=== PATIENT | male | born 1955 | race Caucasian/White ===

== ENCOUNTER 2024-06-04 12:24 | Emergency (ER) | payer MEDICARE ==
[~2024-06-04] VITALS: Ht 162.6 cm; Wt 81.0 kg
[2024-06-04 12:55] LABS: BASOPHILS % (AUTO) 0.2 % (0.0-2.0); EOSINOPHILS % (AUTO) 1.2 % (1.0-6.0); HEMATOCRIT 35.8 % (41-53); HEMOGLOBIN 12.2 g/dL (13.5-17.5); LYMPHOCYTES # (AUTO) 1.6 K/uL (1.0-4.8); MEAN CORPUSCULAR HGB CONC 34.1 G/dL (31.0-37.0); MEAN CORPUSCULAR VOLUME 94 fL (80-100); MONOCYTES # (AUTO) 0.3 K/uL (0.1-1.0); MONOCYTES % (AUTO) 7.6 % (2.0-9.0); NEUTROPHILS # (AUTO) 2.6 K/uL (1.8-7.7); PLATELET COUNT (AUTO) 226 K/uL (150-450); RED BLOOD CELL COUNT(AUTO) 3.81 MIL/uL (4.50-5.90); RED CELL DISTRIBUTION WIDTH 14.1 % (11.5-14.5); WHITE BLOOD COUNT (AUTO) 4.6 K/uL (4.5-11.0)
[2024-06-04 13:08] LABS: ANION GAP 7 mmol/L (8-16); CALCIUM, TOTAL 8.7 mg/dL (8.8-10.5); CARBON DIOXIDE 26 mmol/L (22-29); CHLORIDE 103 mmol/L (98-107); CREATININE 1.09 mg/dL (0.60-1.30); GLOMERULAR FILTR. RATE CALC > 60 mL/min (>60); GLUCOSE,RANDOM 136 mg/dL (70-110); POTASSIUM 3.8 mmol/L (3.5-5.1); SODIUM SERUM 136 mmol/L (136-145); UREA NITROGEN, BLOOD 24 mg/dL (7-18)
[2024-06-04 13:11] LABS: PROTHROMBIN TIME 9.9 SEC (9.4-11.6)
[2024-06-04 13:15] LABS: ALANINE AMINOTRANSFERASE 21 U/L (12-78); ALBUMIN 3.1 g/dL (3.4-5.0); ALKALINE PHOSPHATASE 82 U/L (46-116); ASPARTATE AMINOTRANSFERASE 17 U/L (15-37); BILIRUBIN,TOTAL 0.3 mg/dL (0.1-1.0); TOTAL PROTEIN, SERUM 8.4 g/dL (6.4-8.2)
[2024-06-04] MEDS ORDERED: NiCARDipine HCL 25 MG in SODIUM CHLORIDE 0.9% 240 ML IV PRN (13:15)
[2024-06-04] MEDS ORDERED: LABETALOL HCL 5 MG/ML 20 ML VIAL IVP PRN (13:15)
[2024-06-04] MEDS ORDERED: TENECTEPLASE 50 MG/10 ML KIT IVP ONE (13:18)
[2024-06-04] MEDS: TENECTEPLASE PER STROKE PROTOCOL CLINICAL ONE (13:23)
[2024-06-04] MEDS: TENECTEPLASE 50 MG/10 ML KIT IVP ONE (13:23)
[2024-06-04] MEDS: -PHARMACY NOTE- MISC SCH (13:24)
[2024-06-04 13:29] LABS: TROPONIN I-HIGH SENSITIVITY Less Than 4 ng/L (<76)
[2024-06-04] MEDS ORDERED: SODIUM CHLORIDE 0.9% 100 ML ONE (13:35)
[2024-06-04] MEDS ORDERED: IOHEXOL 350 MG/ML 100 ML VIAL ONE (13:35)
[2024-06-04] MEDS: LevETIRAcetam 1,500 MG in DEXTROSE 5%-WATER 100 ML IV ONE (15:51)
[2024-06-04] MEDS: LevETIRAcetam 3,000 MG in DEXTROSE 5%-WATER 250 ML IV ONE (15:51)
[2024-06-04 16:38] VITALS: O2SAT 97
[2024-06-04 16:59] VITALS: BP 154/84; PULSE 77; RESP 16; TEMP 98.4
== END 2024-06-04 17:10 | disposition short-term general hospital (02) ==
LOC: EMS 12:24 → UNDOADMIN 13:47 → EDH 13:47 → ICU 15:48 → EDH 15:48 → EMS 17:10
DX: R29.810 Facial weakness (principal); I10 Essential (primary) hypertension; E78.5 Hyperlipidemia, unspecified; I61.0 Nontraumatic intracerebral hemorrhage in hemisphere, subcortical; R47.01 Aphasia
CPT/HCPCS: 99285; 70450 ×2; 36430; 96365; 86927; 96375; 80053; 84484; 85025; 85610; 85730; 86850; 86900; 86901; 36415; 70496; 70498; 82948; 93005; J3101; P9017; Q9967; J7060 ×2; J7050; J0712; J3490